=== PATIENT | male | born 1960 | race Caucasian/White ===

== ENCOUNTER 2017-10-16 09:56 | Emergency (ER) | payer MEDICARE, OTHER ==
--- NOTE | 2017-10-16 10:18 | ED Physician Documentation ---
Nausea/Vomiting/Diarrhea - HISTORIAN Historian: patient - HPI Stated Complaint: vomiting Chief Complaint: Nausea,Vomiting,Diarrhea Onset: hours (12) Duration: waxing, waning Last known Well Code/Unknown Code: Unknown Severity: mild Further Comments: yes - Associated Symptoms Vomiting: mild Diarrhea: other (none ) Abdominal Pain: none - ROS CONST: none CVS/RESP: denies: chest pain, shortness of breath, cough GI/: denies: constipation, problems urinating MS/SKIN/LYMPH: denies: rash NEURO/PSYCH: none - PAST HX Past History: other (CKD ) Surgeries/Procedures: other Immunizations: UTD Allergies/Adverse Reactions: Allergies Allergy/AdvReac Type Severity Reaction Status Date / Time No Known Allergies Allergy Verified 10/16/17 10:25 Home Medications: Ambulatory Orders Medication Instructions Recorded Levothyroxine Sodium [Synthroid] 50 mcg PO DAILY 12/02/14 Lisinopril [Prinivil] 40 mg PO QD 12/02/14 Simvastatin [Zocor] 20 mg PO HS 12/02/14 Gabapentin [Neurontin] 800 mg PO TID 12/06/14 Insulin NPH/Reg Insulin 70/30 10 unit SQ [id number] 12/06/14 [Novolin 70-30 100 Unit/ml Vial] Insulin NPH/Reg Insulin 70/30 15 unit SQ [id number] 12/06/14 [Novolin 70-30 100 Unit/ml Vial] - SOCIAL HX Smoking History: cigarettes Alcohol Use: none Drug Use: none - FAMILY HX Family History: none - VITAL SIGNS Vital Signs: Vital Signs Temp Pulse Resp BP Pulse Ox 98.6 F 73 14 214/105 93 10/16/17 09:56 10/16/17 13:06 10/16/17 13:06 10/16/17 13:06 10/16/17 13:06 - REVIEWED ASSESSMENTS Nursing Assessment Reviewed: Yes Vitals Reviewed: Yes Progress - Progress Progress: 1050: Laura at [facility] states she did talk to Dr Shaw - pt will receive 1 liter of fluids and Zofran 4 mg IV and he will be sent to Dialysis for his appt. DG 1132: States nausea is resolved. He is feeling better. Sleeping. DG ED Results Lab/Radiology - Lab Results Lab Results: Lab Results 10/16/17 10/16/17 11:00 11:00 WBC 8.00 K/ul K/ul (4.00-12.00) RBC 4.37 M/ul M/ul (3.90-5.20) Hgb 13.7 g/dL g/dL (12.0-18.0) Hct 41.2 % % (37.0-53.0) MCV 94.4 fl fl (80.0-100.0) MCH 31.4 pg pg (28.0-34.0) MCHC 33.2 g/dL g/dL (30.0-36.0) RDW 15.5 % H % (11.3-14.3) Plt Count 284 K/mm3 K/mm3 (130-400) Neut % (Auto) 75.4 % % (39.0-79.0) Lymph % (Auto) 16.9 % % (16.0-50.0) Spink % (Auto) 4.2 % % (0.0-11.0) Eos % (Auto) 1.3 % % (0.0-6.8) Baso % (Auto) 0.5 (0.0-1.5) Neut # (Auto) 6.0 # k/uL # k/uL (1.4-7.7) Lymph # (Auto) 1.4 # k/uL # k/uL (0.6-4.0) Spink # (Auto) 0.3 # k/uL # k/uL (0.0-0.9) Eos # (Auto) 0.1 # k/uL # k/uL (0.0-0.6) Baso # (Auto) 0.0 # k/uL # k/uL (0.0-0.5) Reactive Lymphs % 1.6 % % (0.0-5.0) Reactive Lymphs # 0.1 # k/uL # k/uL (0.0-0.8) Sodium 142 mmol/L mmol/L (136-145) Potassium 4.5 mmol/L mmol/L (3.5-5.1) Chloride 103 mmol/L mmol/L (98-107) Carbon Dioxide 22 mmol/L mmol/L (22-30) BUN 33 mg/dL H mg/dL (9-20) Creatinine 4.70 mg/dL H mg/dL (0.66-1.25) Estimated Creat Clear 16 Est GFR ( Amer) 17 L (60 - ) Est GFR (Non-Af Amer) 14 L (60 - ) Glucose 114 mg/dL H mg/dL (74-106) Calcium 9.1 mg/dL mg/dL (8.4-10.2) Total Bilirubin 0.7 mg/dL mg/dL (0.2-1.3) AST 58 U/L H U/L (15-46) ALT 51 U/L U/L (13-69) Alkaline Phosphatase 140 U/L H U/L (38-126) Total Protein 7.6 g/dL g/dL (6.3-8.2) Albumin 4.0 g/dL g/dL (3.5-5.0) - Orders Orders: ED Orders Category Date Time Status IV Started NOW Care 10/16/17 10:56 Active CBC/PLATELET/DIFF Stat Lab 10/16/17 11:00 Completed CMP Stat Lab 10/16/17 11:00 Completed 0.9 % Sodium Chloride [Normal Saline] 1,000 ml Med 10/16/17 10:56 Discontinued IV Q1H Ondansetron HCl/Pf [Zofran 4 mg/2 ml] Med 10/16/17 10:55 Discontinued 4 mg IVP NOW ONE EKG WITH COMPARISON Routine Ther 10/16/17 Completed Nausea Physical Exam - EXAM General Appearance: no acute distress, alert EENT: eye inspection normal, ENT inspection normal Neck: normal inspection Respiratory: no resp distress, chest non-tender, breath sounds normal CVS: reg rate & rhythm, heart sounds normal Abdomen: other (did not allow abdomen exam ) Skin: warm/dry, normal color Extremities: non-tender Neuro/Psych: oriented X3, CN's nml as tested Discharge Clincal Impression: Nausea and vomiting Qualifiers: Vomiting type: unspecified Vomiting Intractability: unspecified Qualified Code( s): R11.2 - Nausea with vomiting, unspecified Referrals: Primary Doctor,No [Primary Care Provider] - 2 Days Comments: 1. Follow up with [facility] at 1230 for dialysis 2. Return to ER for any concerns Condition: Stable Disposition: 01 HOME, SELF-CARE Decision to Admit: NO Date of Decison to Admit: 10/16/17 Decision Time: 11:55
[2017-10-16] MEDS ORDERED: ONDANSETRON HCL/PF 4 MG/ 2ML VIAL IVP ONE (10:55)
[2017-10-16] MEDS ORDERED: 0.9 % SODIUM CHLORIDE 1,000 ML IV ONE (10:56)
[2017-10-16 11:04] LABS: BASOPHILS % 0.5 (0.0-1.5); EOSINOPHILS % 1.3 % (0.0-6.8); MEAN CORPUSCULAR HEMOGLOBIN 31.4 pg (28.0-34.0); MEAN CORPUSCULAR VOLUME 94.4 fl (80.0-100.0); MONOCYTES % 4.2 % (0.0-11.0)
[2017-10-16 13:08] VITALS: BP 214/105
== END 2017-10-16 12:14 | disposition home or self-care (01) ==
LOC: ED 09:56
DX: R11.2 Nausea with vomiting, unspecified (principal)
CPT/HCPCS: 80053; 85025; 93005; J2405; J7030; 96365; 96375; 99283; S1016